=== PATIENT | male | born 1990 | race African-American/Black ===

== ENCOUNTER 2018-02-23 15:59 | Emergency (ER) | payer MEDICAID ==
[~2018-02-23] VITALS: Ht 188 cm; Wt 72.6 kg
[~2018-02-23 15:59] MED LIST: ALBUPOW26
[2018-02-23 16:27] VITALS: BP 123/89
== END 2018-02-23 17:00 | disposition home or self-care (01) ==
LOC: ER 15:59
DX: K08.89 Other specified disorders of teeth and supporting structures (principal); F17.210 Nicotine dependence, cigarettes, uncomplicated; F12.10 Cannabis abuse, uncomplicated

== ENCOUNTER 2020-05-22 10:00 | Emergency (ER) | payer MEDICAID ==
[~2020-05-22] VITALS: Ht 188 cm; Wt 74.8 kg
[2020-05-22 10:07] VITALS: BP 138/86
[2020-05-22 11:07] LABS: Basophils # (auto) 0 10 ^3/uL (0-0.2); Basophils % (auto) 0.7 % (0.0-2.0); Eosinophils # (auto) 0 10 ^3/uL (0-0.8); Eosinophils % (auto) 0.4 % (0.0-7.0); Hematocrit 45.3 % (41.0-53.0); Hemoglobin 15.2 g/dL (13.5-17.5); Lymphocytes # (auto) 1.2 10 ^3/uL (0.4-5.4); Lymphocytes % (auto) 19.9 % (10.0-50.0); Mean Corpuscular Hemoglobin 28.9 pg (28.0-32.0); Mean Corpuscular Hgb Conc. 33.6 g/dL (32.0-36.0); Monocytes # (auto) 0.4 10 ^3/uL (0-1.3); Neutrophils # (auto) 4.3 10 ^3/uL (1.6-8.6); Nucleated Red Blood Cells % 0.2 %; Platelet Count (auto) 223 10^3/uL (140-450); Red Blood Cells 5.26 10^6/uL (4.5-5.90); Red Cell Distribution Width 13.9 % (11.8-14.3)
[2020-05-22 11:22] LABS: BUN/Creatinine Ratio 10.5; Calcium 9.2 mg/dL (8.5-10.1); Magnesium 2.4 mg/dL (1.6-2.6); Potassium 4.4 mmol/L (3.5-5.1)
== END 2020-05-22 12:33 | disposition home or self-care (01) ==
LOC: ER 10:00
DX: J20.9 Acute bronchitis, unspecified (principal); J45.909 Unspecified asthma, uncomplicated; F17.210 Nicotine dependence, cigarettes, uncomplicated; Z20.828 Contact with and (suspected) exposure to other viral communicable diseases; Z79.899 Other long term (current) drug therapy
CPT/HCPCS: 36415; 71045; 80048; 83735; 85025; 87070; 87426; 87880; 99284; U0003

== ENCOUNTER 2020-08-09 14:51 | Emergency (ER) | payer MEDICAID ==
[~2020-08-09] VITALS: Ht 188 cm; Wt 72.6 kg
[2020-08-09 15:22] VITALS: BP 146/87
[2020-08-09] MEDS ORDERED: KETOROLAC TROMETH 60MG/2ML VIAL IM ONE (15:30)
== END 2020-08-09 16:48 | disposition home or self-care (01) ==
LOC: ER 14:51
DX: S63.91XA Sprain of unspecified part of right wrist and hand, initial encounter (principal); S30.0XXA Contusion of lower back and pelvis, initial encounter; F17.210 Nicotine dependence, cigarettes, uncomplicated; W01.0XXA Fall on same level from slipping, tripping and stumbling without subsequent striking against object, initial encounter; Y93.89 Activity, other specified; Y92.89 Other specified places as the place of occurrence of the external cause; Y99.8 Other external cause status
CPT/HCPCS: 72220; 73130; 96372; 99284; J1885